=== PATIENT | female | born 1975 | race Two or more races ===

== ENCOUNTER 2022-12-21 01:17 | Emergency (ER) | payer OTHER ==
[~2022-12-21] VITALS: Ht 154.9 cm; Wt 79.0 kg
[2022-12-21 01:38] VITALS: BP 125/74; PULSE 71; RESP 15; TEMP 97.6; O2SAT 98
[2022-12-21] MEDS ORDERED: HYDROcodone-ACET 7.5/325MG TAB PO ONE (04:30)
[2022-12-21] MEDS ORDERED: KETOROLAC TROMETH 60MG/2ML VIAL IM ONE (04:30)
[2022-12-21] MEDS ORDERED: IBUP-1454 PO (04:33)
[2022-12-21] MEDS ORDERED: CYCL-611 PO (04:33)
== END 2022-12-21 05:47 | disposition home or self-care (01) ==
LOC: ER 01:17
DX: S43.492A Other sprain of left shoulder joint, initial encounter (principal); S43.491A Other sprain of right shoulder joint, initial encounter; S13.8XXA Sprain of joints and ligaments of other parts of neck, initial encounter; S00.03XA Contusion of scalp, initial encounter; W22.8XXA Striking against or struck by other objects, initial encounter; Y93.89 Activity, other specified; Y92.89 Other specified places as the place of occurrence of the external cause; Y99.8 Other external cause status
CPT/HCPCS: 70450; 72040; 73030; 96372; 99285; J1885

== ENCOUNTER 2023-04-16 18:23 | Emergency (ER) | payer OTHER ==
[~2023-04-16] VITALS: Ht 152.4 cm; Wt 88.3 kg
[~2023-04-16 18:23] MED LIST: CYCL-611 PO; IBUP-1454 PO
[2023-04-16 18:45] VITALS: BP 118/65; PULSE 68; RESP 18; O2SAT 99
[2023-04-16] MEDS ORDERED: HYDR-4902 PO (22:12)
[2023-04-16] MEDS ORDERED: IBUP-1455 PO (22:12)
[2023-04-17] MEDS: HYDROcodone-ACET 10/325MG TAB PO ONE (00:07)
== END 2023-04-17 00:16 | disposition home or self-care (01) ==
LOC: EDBD 18:23 → ER 18:23
DX: S40.022A Contusion of left upper arm, initial encounter (principal); S09.90XA Unspecified injury of head, initial encounter; Z79.1 Long term (current) use of non-steroidal anti-inflammatories (NSAID); Z79.899 Other long term (current) drug therapy; W01.0XXA Fall on same level from slipping, tripping and stumbling without subsequent striking against object, initial encounter; Y93.89 Activity, other specified; Y92.89 Other specified places as the place of occurrence of the external cause; Y99.8 Other external cause status
CPT/HCPCS: 70450; 72125; 73090

== ENCOUNTER 2024-09-21 19:26 | Emergency (ER) | payer OTHER ==
[~2024-09-21] VITALS: Ht 152.4 cm; Wt 101.2 kg
[~2024-09-21 19:26] MED LIST changes: +HYDR-4902 PO; +IBUP-1455 PO
[2024-09-21 19:54] VITALS: TEMP 97.5
--- NOTE | 2024-09-21 20:02 | ED.PDOC ---
Back pain HPI HPI Comments 48-year-old female presents to ER with complaints of back pain x 5 days. Patient with PMH of chronic lumbar back pain s/p fall during a work related injury in 2023 reports that she started experiencing worsening lumbar back pain x 5 days. She rates her current pain a 9/10 to lower lumbar spine with radiation down posterior bilateral legs and denies any recent falls/heavy lifting to cause her worsening lumbar back pain x 5 days. Patient presents to ER ambulatory on arrival, with steady gait, in no distress reports he has been taking ibuprofen for her pain without relief. Denies fever, numbness/tingling, nausea/vomiting, chest pain, abdominal/pelvic pain, changes in urination/BM or any further symptoms/complaints Chief Complaint: Back Pain Time Seen by MD: 19:33 Primary Care Provider: UNKNOWN Reviewed Notes: Nurses Notes, Medications, Allergies Allergies: Coded Allergies: NO KNOWN ALLERGIES (Unverified , 12/21/22) Home Meds Active Scripts Ibuprofen (Ibuprofen) 800 Mg Tab, 1 TAB PO TID PRN, #30 TAB 0 Refills Prov:RACHEL DAN 09/21/24 Hydrocodone-Acetaminophen (Hydrocodone Bitartrate/AC 5-325 mg) 1 Tab Tab, 1 TAB PO Q6HP PRN, #20 TAB Prov:EFRAÍN SPANGLER PAC 04/18/23 Ibuprofen Micronized (Ibuprofen) 800 Mg Tab, 800 MG PO Q8HP PRN, #20 TAB Prov:EFRAÍN SPANGLER PAC 04/18/23 Cyclobenzaprine HCl (Cyclobenzaprine Hydrochlo) 10 Mg Tab, 1 TAB PO Q8HR, #15 TAB As needed for muscle spasm Prov:JONATHAN BOCANEGRA DENTAL LABORATORY ASSISTANT 12/21/22 Ibuprofen (Ibuprofen) 600 Mg Tab, 1 TAB PO TID, #20 TAB as needed for pain Prov:JONATHAN BOCANEGRA Q DENTAL LABORATORY ASSISTANT 12/21/22 Information Source: Patient Mode of Arrival: Ambulatory Past Medical History Past Medical History (Other): Chronic lumbar back pain Surgical History: Denies all surgeries CRANBERRY BOG SUPERVISOR History: No Pertinent CRANBERRY BOG SUPERVISOR History Family History Family History: Unknown Social History Smoker: Non-Smoker Alcohol: Denies ETOH Use Drugs: Denies Drug Use Lives In: Home Constitutional: denies: chills, diaphoresis, fatigue, fever, malaise, sweats, weakness, others EENTM: denies: blurred vision, double vision, ear bleeding, ear discharge, ear drainage, ear pain, ear ringing, eye pain, eye redness, hearing loss, mouth pain, mouth swelling, nasal discharge, nose bleeding, nose congestion, nose pain , photophobia, tearing, throat pain, throat swelling, voice changes, others Respiratory: denies: cough, hemoptysis, orthopnea, SOB at rest, shortness of breath, SOB with excertion, stridor, wheezing, others Cardiovascular: denies: chest pain, dizzy spells, diaphoresis, Dyspnea on exertion, edema, irregular heart beat, left arm pain, lightheadedness, palpitations, PND, syncope, others Gastrointestinal: denies: abdomen distended, abdominal pain, blood streaked bowels, constipated, diarrhea, dysphagia, difficulty swallowing, hematemesis, melena, nausea, poor appetite, poor fluid intake, rectal bleeding, rectal pain, vomiting, others Genitourinary: denies: abnormal vagina bleeding, burning, dyspareunia, dysuria, flank pain, frequency, hematuria, incontinence, pain, , vagina discharge, urgency, others Neurological: denies: dizziness, fainting, headache, left sided numbness, left sided weakness, numbness, paresthesia, pre-existing deficit, right sided numbness, right sided weakness, seizure, speech problems, tingling, tremors, weakness, others Musculoskeletal: reports: others (As stated in HPI) Integumetry: denies: bruises, change in color, change in hair/nails, dryness, laceration, lesions, lumps, rash, wounds, others Allergic/Immunocompromised: denies: Difficulty Healing, Frequent Infections, Hives, Itching, others Hematologic/Lymphatic: denies: anemia, blood clots, easy bleeding, easy bruising, swollen glands, others Endocrine: denies: excessive hunger, excessive sweating, excessive thirst, excessive urination, flushing, intolerance to cold, intolerance to heat, unexplained weight gain, unexplained weight loss, others Psychiatric: denies: anxiety, bipolar disorder, depression, hopeless, panic disorder, schizophrenia, sleepless, suicidal, others Physical Exam General Appearance: No Apparent Distress HEENT: Normal ENT Inspection, PERRL/EOMI, Pharynx Normal, TMs Normal Neck: Full Range of Motion, Non-Tender, Normal Respiratory: Chest Non-Tender, Lungs Clear, No Accessory Muscle Use, No Respiratory Distress, Normal Breath Sounds Cardiovascular: No Murmur, No Gallop, Regular Rate/Rhythm Breast Exam: Deferred Gastrointestinal: Non Tender, No Pulsatile Mass, Normal Bowel Sounds, Soft Genitalia: Deferred Pelvic: Deferred Rectal: Deferred Extremities: Normal capillary refill, Normal range of motion Musculoskeletal : Extremity Location: Back (TTP to bilateral lower lumbar paraspinals noted. No skin changes noted. Steady gait appreciated) Neurologic: Alert, No Motor Deficits, Normal Affect, Normal Mood, No Sensory Deficits Cerebellar Function: Normal Reflexes: Normal Skin: Dry, Normal Color, Warm Peripheral Pulses: 2+ Radial (R), 2+ Radial (L), 2+ Brachial (R), 2+ Brachial (L) Lymphatic: No Adenopathy Was a procedure done? Was a procedure done?: No Sedation Sedation?: No Back Pain Differential Dx Differential Diagnosis: AAA, Fracture, Urolithiasis, Other (Neurovascular injury) X-Ray, Labs, Meds, VS Vital Signs Date Time Temp Pulse Resp B/P (MAP) Pulse Ox O2 Delivery O2 Flow Rate FiO2 09/21/24 19:54 97.5 75 16 143/60 (87) 99 97.5 Lab Test 09/21/24 21:10 Range/Units Urine Color Light-yellow Yellow Urine Clarity Clear Clear Urine pH 5.5 5.0-9.0 Urine Specific [place] 1.031 1.001-1.035 Urine Protein Negative Negative Urine Ketones Negative Negative Urine Blood Negative Negative /uL Urine Nitrite Negative Negative Urine Bilirubin Negative Negative Urine Urobilinogen Normal Negative mg/dL Urine Leukocyte Esterase Negative Negative /uL Urine RBC 1 0 - 4 /hpf Urine Microscopic WBC 1 0-5 /HPF Urine Squamous Epithelial Cells Few <5 /hpf Urine Bacteria Few H None Seen /hpf Urine Glucose Normal Normal mg/dL PATIENT: TAD ODENT: [id number]: [id number] : 1975 LOC: ER ROOM / BED: / AGE / SEX: 48 / F ADM STATUS: REG ER SERVICE 56 ORDERING PHYSICIAN: RACHEL DAN PROCEDURE(s): LUMB2 - LUMBAR SPINE 3 VIEW REASON: lumbar back pain ORDER NUMBER(s): [id number], ACCESSION NUMBER(s): [id number] LUMBAR SPINE 3 VIEWS REASON FOR EXAM: lumbar back pain COMPARISON: None TECHNIQUE: AP, lateral and bilateral oblique views of the lumbar spine as well as a magnified lateral view of the lumbosacral junction are obtained. FINDINGS: Five lumbar type vertebra are identified. The vertebral body heights are maintained and there is no evidence of fracture. There is no listhesis. There is moderate disc height loss from T11-L2 with endplate hypertrophy. The soft tissues are grossly unremarkable. IMPRESSION: No radiographic evidence of spine fracture or subluxation. Moderate degenerative disc disease T11-L2. ATED BY: CHENTE VALDEZ MD DICTATED DATE/TIME: 09/21/242100 SIGNED BY: CHENTE VALDEZ MD SIGNED DATE/TIME: 09/21/242100 CC: Lumbar spine x-ray reviewed Urinalysis reviewed without any significant abnormalities Patient neurovascularly intact Advised on rest/no strenuous activity Advised to follow up with PCP in 1-2 days Patient verbalized understanding and agreeable with current plan of care Advised to return to ER immediately if symptoms worsen Time of 1ST Reevaluation: 20:54 Reevaluation 1ST: N/A Patient Education/Counseling: Diagnosis, Treatment, Prognosis, Need For Follow Up Family Education/Counseling: No Family Present SEPSIS Sepsis Screen Physician Orders Lumbar Spine 3 View (09/21/24 19:57) Vital Signs Date Time Temp Pulse Resp B/P (MAP) Pulse Ox O2 Delivery O2 Flow Rate FiO2 09/21/24 19:54 97.5 75 16 143/60 (87) 99 97.5 Departure 1 Departure Time of Disposition: 21:12 Impression: Primary Impression: Acute exacerbation of chronic low back pain Disposition: 01 HOME / SELF CARE / HOMELESS Condition: Stable e-Prescriptions Ibuprofen (Ibuprofen) 800 Mg Tab 1 TAB PO TID PRN, #30 TAB 0 Refills Prov: RACHEL DAN 09/21/24 Discharged With: Self Critical Care Note Critical Care Time?: No Stability Stability form required: No Heart Score Heart Score: Heart Score Response (Comments) Value History N/A 0 EKG N/A 0 Age N/A 0 Risk Factors N/A 0 Troponin N/A 0 Total 0 RACHEL DAN Sep 21, 2024 20:02
--- NOTE | 2024-09-21 21:04 | DVH ---
LUMBAR SPINE 3 VIEWS REASON FOR EXAM: lumbar back pain COMPARISON: None TECHNIQUE: AP, lateral and bilateral oblique views of the lumbar spine as well as a magnified lat eral view of the lumbosacral junction are obtained. FINDINGS: Five lumbar type vertebra are identified. The vertebral body heights are maintained and the re is no evidence of fracture. There is no listhesis. There is moderate disc height loss from T11-L2 with endplate hypertrophy. The soft tissues are grossly unremarkable. IMPRESSION: No radiographic evidence of spine fracture or subluxation. Moderate degenerative disc disease T11-L2.
[2024-09-21] MEDS ORDERED: IBUP-1456 PO (21:16)
[2024-09-21 21:18] LABS: Urine Protein, UAD Negative (Negative)
[2024-09-21 21:29] VITALS: BP 132/72; PULSE 71; RESP 18; O2SAT 98
== END 2024-09-21 21:31 | disposition home or self-care (01) ==
LOC: ER 19:26
DX: G89.29 Other chronic pain (principal); M54.50 Low back pain, unspecified
CPT/HCPCS: 72100; 81001

== ENCOUNTER 2024-10-01 17:53 | Emergency (ER) | payer OTHER ==
[~2024-10-01] VITALS: Ht 154.9 cm; Wt 100.0 kg
[~2024-10-01 17:53] MED LIST changes: +IBUP-1456 PO
--- NOTE | 2024-10-01 18:32 | ED.PDOC ---
Back pain HPI HPI Comments 48-year-old female presents to the ED chief complaint lower back pain and neck pain. Patient reports this is acute on chronic she notes injury happened six months ago at work she is currently scheduled for a MRI in two weeks. States the medication she has not home anti-inflammatories has not been helping. Denies any new injury. Denies numbness, weakness, loss of bowel bladder control, or saddle anesthesia. Chief Complaint: Back Pain Time Seen by MD: 18:22 Primary Care Provider: UNKNOWN Reviewed Notes: Nurses Notes, Medications, Allergies Allergies: Coded Allergies: NO KNOWN ALLERGIES (Unverified , 12/21/22) Home Meds Active Scripts Tizanidine Hydrochloride (Tizanidine Hcl) 4 Mg Tab, 4 MG PO BID PRN for 7 Days, #14 TAB Prov:KARMEN SALAZAR UNDERCAR SPECIALIST 10/01/24 Methylprednisolone (Medrol Dosepak) 4 Mg Phani, 4 MG PO UD for 6 Days, #21 TAB UAD Prov:KARMEN SALAZAR UNDERCAR SPECIALIST 10/01/24 Ibuprofen (Ibuprofen) 800 Mg Tab, 1 TAB PO TID PRN, #30 TAB 0 Refills Prov:RACHEL DAN 09/21/24 Hydrocodone-Acetaminophen (Hydrocodone Bitartrate/AC 5-325 mg) 1 Tab Tab, 1 TAB PO Q6HP PRN, #20 TAB Prov:EFRAÍN SPANGLER PAC 04/18/23 Ibuprofen Micronized (Ibuprofen) 800 Mg Tab, 800 MG PO Q8HP PRN, #20 TAB Prov:EFRAÍN SPANGLER PAC 04/18/23 Cyclobenzaprine HCl (Cyclobenzaprine Hydrochlo) 10 Mg Tab, 1 TAB PO Q8HR, #15 TAB As needed for muscle spasm Prov:JONATHAN BOCANEGRA HIGH SCHOOL MATHEMATICS TEACHER 12/21/22 Ibuprofen (Ibuprofen) 600 Mg Tab, 1 TAB PO TID, #20 TAB as needed for pain Prov:JONATHAN BOCANEGRA HIGH SCHOOL MATHEMATICS TEACHER 12/21/22 Information Source: Patient Mode of Arrival: Ambulatory Severity: Moderate Quality: Sharp, Stabbing Modifying Factors: Nothing; No Movement, No Twisting Associated signs and symptoms: None Past Medical History PAST MEDICAL HISTORY: Denies Surgical History: Denies all surgeries SALES AND MARKETING ADMINISTRATOR History: No Pertinent SALES AND MARKETING ADMINISTRATOR History Family History Family History: Unknown Social History Smoker: Non-Smoker Alcohol: Denies ETOH Use Drugs: Denies Drug Use Lives In: Home Constitutional: denies: chills, diaphoresis, fatigue, fever, malaise, sweats, weakness, others EENTM: denies: blurred vision, double vision, ear bleeding, ear discharge, ear drainage, ear pain, ear ringing, eye pain, eye redness, hearing loss, mouth pain, mouth swelling, nasal discharge, nose bleeding, nose congestion, nose pain, photophobia, tearing, throat pain, throat swelling, voice changes, others Respiratory: denies: cough, hemoptysis, orthopnea, SOB at rest, shortness of breath, SOB with excertion, stridor, wheezing, others Cardiovascular: denies: chest pain, dizzy spells, diaphoresis, Dyspnea on exertion, edema, irregular heart beat, left arm pain, lightheadedness, palpitations, PND, syncope, others Gastrointestinal: denies: abdomen distended, abdominal pain, blood streaked bowels, constipated, diarrhea, dysphagia, difficulty swallowing, hematemesis, melena, nausea, poor appetite, poor fluid intake, rectal bleeding, rectal pain, vomiting, others Genitourinary: denies: abnormal vagina bleeding, burning, dyspareunia, dysuria, flank pain, frequency, hematuria, incontinence, pain, , vagina discharge, urgency, others Neurological: denies: dizziness, fainting, headache, left sided numbness, left sided weakness, numbness, paresthesia, pre-existing deficit, right sided numbness, right sided weakness, seizure, speech problems, tingling, tremors, weakness, others Musculoskeletal: reports: back pain, neck pain; denies: gout, joint pain, joint swelling, muscle pain, muscle stiffness, others Integumetry: denies: bruises, change in color, change in hair/nails, dryness, laceration, lesions, lumps, rash, wounds, others Allergic/Immunocompromised: denies: Difficulty Healing, Frequent Infections, Hives, Itching, others Hematologic/Lymphatic: denies: anemia, blood clots, easy bleeding, easy bruising, swollen glands, others Endocrine: denies: excessive hunger, excessive sweating, excessive thirst, excessive urination, flushing, intolerance to cold, intolerance to heat, unexplained weight gain, unexplained weight loss, others Psychiatric: denies: anxiety, bipolar disorder, depression, hopeless, panic disorder, schizophrenia, sleepless, suicidal, others Physical Exam General Appearance: No Apparent Distress, Normal HEENT: Pharynx Normal Neck: Limited Range of Motion, Tender Lateral Respiratory: Lungs Clear, No Respiratory Distress, Normal Breath Sounds Cardiovascular: No Murmur, Normal Peripheral Pulses, Regular Rate/Rhythm Breast Exam: Deferred Gastrointestinal: Non Tender, Soft Genitalia: Deferred Pelvic: Deferred Rectal: Deferred Extremities: Normal range of motion, No pedal edema Musculoskeletal : Location: Bilateral Extremity Location: Back (Tenderness palpated over T10 through L4 bilateral paraspinal muscles no noted crepitus or step-offs along spine. Strength sensory motion intact negative straight leg raise bilateral positive pedal pulses) Apperance: Normal Neurologic: Alert, No Motor Deficits, Normal Affect, Normal Mood, No Sensory Deficits Cerebellar Function: Normal Reflexes: Normal Skin: Dry, Normal Color, Warm Lymphatic: No Adenopathy Was a procedure done? Was a procedure done?: No Back Pain Differential Dx Differential Diagnosis: Fracture, Musculoskeletal Pain, Strain X-Ray, Labs, Meds, VS Vital Signs Date Time Temp Pulse Resp B/P (MAP) Pulse Ox O2 Delivery O2 Flow Rate FiO2 10/01/24 17:55 98.3 102 18 106/79 98 98.3 Current Medications Medications (Trade) Dose Ordered Sig/Alicia Route Start Time Stop Time Status Last Admin Acetaminophen/ Hydrocodone Bitart (Spade 5/325MG Tab) 1 tab ONCE ONCE PO 10/01/24 18:45 10/01/24 18:46 DC 10/01/24 19:10 Ketorolac Tromethamine (Toradol Injection) 60 mg ONCE ONCE IM 10/01/24 18:45 10/01/24 18:46 DC 10/01/24 19:09 Dexamethasone Sodium Phosphate (Decadron Injection) 10 mg ONCE ONCE IM 10/01/24 18:45 10/01/24 18:46 DC 10/01/24 19:09 X-Ray, Labs, Meds, VS Comment Patient given Toradol, Decadron, Spade reports improvement in pain and function requesting discharge at this time. Script trial of muscle relaxer and Medrol Dosepak advised to take medications as prescribed side effects discussed. Advised patient to follow up with [facility] for the scheduled MRI. ER return precautions given patient indicates understanding and agrees with discharge plan of care. Time of 1ST Reevaluation: 18:32 Reevaluation 1ST: Unchanged Time of 2ND Reevaluation: 19:22 Reevaluation 2ND: Improved Patient Education/Counseling: Diagnosis, Treatment, Prognosis, Need For Follow Up Family Education/Counseling: No Family Present SEPSIS Sepsis Screen Date sepsis recognized/suspect: Oct 01, 2024 Time Sepsis recognized/suspect: 1756 Recent Procedure: No On Antibiotic Therapy: No Respiratory Rate >20: No Heart Rate >90: Yes Temp<36 C (96.8 F) or >38.3 C: No SBP <90 or MAP <65 mmHG: No New Acute Mental Status Change: No Is the patient on CPAP, BIPAP,: No Vital Signs Date Time Temp Pulse Resp B/P (MAP) Pulse Ox O2 Delivery O2 Flow Rate FiO2 10/01/24 17:55 98.3 102 18 106/79 98 98.3 Medications Medications Dose Ordered Sig/Alicia Route Start Time Stop Time Status Last Admin Dose Admin Acetaminophen/ Hydrocodone Bitart 1 tab ONCE ONCE PO 10/01/24 18:45 10/01/24 18:46 DC 10/01/24 19:10 Dexamethasone Sodium Phosphate 10 mg ONCE ONCE IM 10/01/24 18:45 10/01/24 18:46 DC 10/01/24 19:09 Ketorolac Tromethamine 60 mg ONCE ONCE IM 10/01/24 18:45 10/01/24 18:46 DC 10/01/24 19:09 Departure 1 Departure Time of Disposition: 19:22 Impression: Primary Impression: Lumbar sprain Qualified Codes: S33.5XXA - Sprain of ligaments of lumbar spine, initial encounter Additional Impressions: Cervical muscle strain Qualified Codes: S16.1XXA - Strain of muscle, fascia and tendon at neck level, initial encounter Strain of muscle and tendon of back wall of thorax, initial encounter Disposition: 01 HOME / SELF CARE / HOMELESS Condition: Stable e-Prescriptions Tizanidine Hydrochloride (Tizanidine Hcl) 4 Mg Tab 4 MG PO BID PRN for 7 Days, #14 TAB Prov: KARMEN SALAZAR 10/01/24 Methylprednisolone (Medrol Dosepak) 4 Mg Phani 4 MG PO UD for 6 Days, #21 TAB UAD Prov: KARMEN SALAZAR UNDERCAR SPECIALIST 10/01/24 Discharged With: Self Critical Care Note Critical Care Time?: No Stability Stability form required: No MARTIN,KARMEN UNDERCAR SPECIALIST Oct 01, 2024 18:32
[2024-10-01] MEDS ORDERED: METH4PAK PO (18:50)
[2024-10-01] MEDS ORDERED: TIZA-142 PO (18:50)
[2024-10-01] MEDS: KETOROLAC TROMETH 60MG/2ML VIAL IM ONE (19:09)
[2024-10-01] MEDS: HYDROcodone-ACET 5/325MG TAB PO ONE (19:10)
[2024-10-01 19:33] VITALS: BP 134/62; PULSE 94; RESP 16; TEMP 97.4; O2SAT 98
== END 2024-10-01 19:47 | disposition home or self-care (01) ==
LOC: ER 17:53
DX: S33.5XXA Sprain of ligaments of lumbar spine, initial encounter (principal); S16.1XXA Strain of muscle, fascia and tendon at neck level, initial encounter; S29.012A Strain of muscle and tendon of back wall of thorax, initial encounter; X58.XXXA Exposure to other specified factors, initial encounter; Y93.89 Activity, other specified; Y92.89 Other specified places as the place of occurrence of the external cause; Y99.8 Other external cause status
CPT/HCPCS: 96372; 99284; J1100; J1885